=== PATIENT | female | born 1975 ===

== ENCOUNTER 2018-03-10 17:04 | Emergency (ER) | payer BC, OTHER ==
[2018-03-10 17:25] VITALS: BP 138/87
--- NOTE | 2018-03-10 17:52 | UC ---
Complaint Female HPI - HPI Summary HPI Summary: 42 y/o female presents to the urgent care c/o Frequent, burning urination and urgency for 10 days. Pt reports she has been taken the cranberry pills and drinking a lot of water w/o any improvement of symptoms/. Pt denies vaginal discharge, fever, lower back pain, flank pain, abdominal pain, N/v/D or chest pain. - History Of Current Complaint Chief Complaint: UCGU Stated Complaint: POSS UTI Time Seen by Provider: 03/10/18 17:32 Hx Obtained From: Patient Hx Last Menstrual Period: [id number] Onset/Duration: Gradual Onset, Lasting Days - 10 days, Still Present, Worse Since - 2 days Timing: Intermittent Severity Initially: Mild Severity Currently: Moderate Pain Intensity: 5 Pain Scale Used: 0-10 Numeric Character: Burning Aggravating Factor(s): Urination Associated Signs And Symptoms: Positive: Negative. Negative: Fever, Back Pain, Vaginal Bleeding/Discharge, Vaginal Discharge, Nausea, Vomiting(# Of Episodes =) , Genital Swelling, Genital Blisters - Risk Factors Ectopic Risk Factor: Negative Ovarian Torsion Risk Factor: Negative - Allergies/Home Medications Allergies/Adverse Reactions: Allergies Allergy/AdvReac Type Severity Reaction Status Date / Time No Known Allergies Allergy Verified 03/10/18 17:26 Home Medications: Home Medications Cranberry Conc/C/Bacill Coag [Cranberry Tablet] 1 each PO DAILY 03/10/18 [ History Confirmed 03/10/18] PMH/Surg Hx/FS Hx/Imm Hx Previously Healthy: Yes - Pt denies PMHX - Surgical History Surgical History: Yes Surgery Procedure, Year, and Place: csection - Social History Occupation: Employed Full-time Lives: With Family Alcohol Use: Weekly Alcohol Amount: 2 Substance Use Type: None Smoking Status (MU): Former Smoker Review of Systems All Other Systems Reviewed And Are Negative: Yes Constitutional: Positive: Negative Skin: Positive: Negative Eyes: Positive: Negative ENT: Positive: Negative Respiratory: Positive: Negative Cardiovascular: Positive: Negative Gastrointestinal: Positive: Negative Genitourinary: Positive: Dysuria, Frequency, Urgency Motor: Positive: Negative Neurovascular: Positive: Negative Musculoskeletal: Positive: Negative Neurological: Positive: Negative Psychological: Positive: Negative Is Patient Immunocompromised?: No Physical Exam - Summary Physical Exam Summary: VITAL SIGNS: Reviewed. GENERAL: Patient is a well developed and nourished female who is sitting comfortable in the examining table. Patient is not in any acute respiratory distress. HEAD AND FACE: No signs of trauma. No ecchymosis, hematomas or skull depressions. No sinus tenderness. EYES: PERRLA, EOMI x 2, No injected conjunctiva, clear watery eyes, no nystagmus. No photophobia. EARS: Hearing grossly intact. Ear canals and tympanic membranes are within normal limits. MOUTH: pharynx with no erythema, no exudates,no palatal petechiae. no B/L tonsillar enlargement Uvula in midline. NECK: Supple, trachea is midline, no lymphadenopathy, no JVD, no carotid bruit, no c-spine tenderness, neck with full ROM. CHEST: Symmetric, no tenderness at palpation LUNGS: Clear to auscultation bilaterally. No wheezing or crackles. CVS: Regular rate and rhythm, S1 and S2 present, no murmurs or gallops appreciated. ABDOMEN: Soft, non-tender. No signs of distention. No rebound no guarding, and no masses palpated. Bowel sounds are normal. BACK:no scoliosis or lesions, non tender to palpation, No B/L CVA tenderness EXTREMITIES: FROM in all major joints, no edema, no cyanosis or clubbing. NEURO: Alert and oriented x 3. No acute neurological deficits. Speech is normal and follows commands. SKIN: Dry and warm Triage Information Reviewed: Yes Vital Signs: Initial Vital Signs Temp 98.8 F 03/10/18 17:21 Pulse 86 03/10/18 17:21 Resp 16 03/10/18 17:21 BP 138/87 03/10/18 17:21 Pulse Ox 100 03/10/18 17:21 Complaint Female Dx - Course Course Of Treatment: 42 y/o female presents to the urgent care c/o Frequent, burning urination and urgency for 10 days. Pt reports she has been taken the cranberry pills and drinking a lot of water w/o any improvement of symptoms/. Pt denies vaginal discharge, fever, lower back pain, flank pain, abdominal pain , N/v/D or chest pain. Hx obtained. UA and test ordered. UA results: Blood 2+, Leukoesterase 2+. test: negative. Pt Rx ciprofloxacin PO 100mg PO x 7 days. Pyridium 100mg PO TID x 2 days. first dose given at the clinic today. Advised to increase fluid intake. Urine sent for culture if any abnormality Pt will be notified for further treatment. Pt advised If symptoms do not improve to return to the urgent care or f/u with PCP. Pt understood and agreed. Left the clinic ambulating. - Differential Dx/Diagnosis Differential Diagnosis/HQI/PQRI: Cervicitis, , Renal Colic, Ureteral Stone, Urinary Tract Infection Provider Diagnosis: UTI (urinary tract infection), Dysuria Discharge - Sign-Out/Discharge Documenting (check all that apply): Patient Departure - d/c home All imaging exams completed and their final reports reviewed: No Studies - Discharge Plan Condition: Stable Disposition: HOME Prescriptions: Ciprofloxacin TAB* [Cipro 500 MG TAB*] 500 mg PO BID #13 tab Phenazopyridine TAB* [Pyridium 100 mg TAB*] 100 mg PO TID #5 tab Patient Education Materials: Urinary Tract Infection in Women (ED) Referrals: Melanie Mott MD [Primary Care Provider] - 2 Days Additional Instructions: 1- Please take ciprofloxacin 100mg PO x 7 days. Pyridium 100 mg PO TID x 2 days to alleviate urinary symptoms. Increase increase fluid intake. drink cranberry juice. 2-Urine sent for culture if any abnormality, you will be notified for further treatment. 3-If symptoms do not improve please return to the urgent care or f/u with PCP in 2-3 days. - Billing Disposition and Condition Condition: STABLE Disposition: Home - Attestation Statements Provider Attestation: I was available for consult. This patient was seen by the [facility]. The patient was not presented to , seen by or examined by va -Diamond Hanks MD
[2018-03-10] MEDS ORDERED: Ciprofloxacin TAB* 500 MG PO ONE (17:54)
[2018-03-10] MEDS ORDERED: Phenazopyridine TAB* 100 MG PO ONE (17:55)
== END 2018-03-10 18:20 | disposition home or self-care (01) ==
LOC: UCEAST 17:04
DX: N39.0 Urinary tract infection, site not specified (principal); Z32.02 Encounter for pregnancy test, result negative; Z87.891 Personal history of nicotine dependence
CPT/HCPCS: 81003; 84702; 87086; 99212; A9270-GY; G0463